=== PATIENT | male | born 1980 | race Caucasian/White ===

== ENCOUNTER 2017-10-09 08:31 | Emergency (ER) | payer SELFPAY ==
[~2017-10-09] VITALS: Ht 180.3 cm; Wt 81.8 kg
[2017-10-09 09:21] VITALS: BP 112/68
== END 2017-10-09 09:18 | disposition home or self-care (01) ==
LOC: ED 08:31
DX: S81.812A Laceration without foreign body, left lower leg, initial encounter (principal); W25.XXXA Contact with sharp glass, initial encounter; Y92.009 Unspecified place in unspecified non-institutional (private) residence as the place of occurrence of the external cause; Z23 Encounter for immunization
CPT/HCPCS: 90715

== ENCOUNTER 2017-10-21 15:35 | Emergency (ER) | payer SELFPAY ==
[2017-10-21 15:48] VITALS: BP 122/72
== END 2017-10-21 15:48 | disposition home or self-care (01) ==
LOC: ED 15:35
DX: Z48.02 Encounter for removal of sutures (principal)

== ENCOUNTER 2019-06-20 20:32 | Emergency (ER) | payer SELFPAY ==
[2019-06-20 21:45] VITALS: BP 121/81
== END 2019-06-20 21:45 | disposition home or self-care (01) ==
LOC: ED 20:32
DX: M79.645 Pain in left finger(s) (principal)